=== PATIENT | male | born 1990 | race African-American/Black ===

== ENCOUNTER 2020-04-21 08:36 | Outpatient (CLI) | payer OTHER | END 2020-04-21 20:34 | disposition home or self-care (01) | LOC: CT 08:36 | DX: R10.9 Unspecified abdominal pain (principal); R31.9 Hematuria, unspecified ==

== ENCOUNTER 2020-04-24 15:07 | Outpatient (CLI) | payer OTHER ==
[2020-04-24 15:16] LABS: PLATELET COUNT 172 K/uL (142-355)
[2020-04-24 15:39] LABS: POTASSIUM 4.1 mmol/L (3.6-5.2)
== END 2020-04-24 23:07 | disposition home or self-care (01) ==
LOC: LAB 15:07
PROVIDERS: Nurse Practitioner Family
DX: Z13.220 Encounter for screening for lipoid disorders (principal); Z13.228 Encounter for screening for other metabolic disorders; Z13.0 Encounter for screening for diseases of the blood and blood-forming organs and certain disorders involving the immune mechanism; R53.83 Other fatigue
CPT/HCPCS: 80053; 80061; 84402; 84403; 84443; 85027

== ENCOUNTER 2020-09-14 17:51 | Outpatient (CLI) | payer OTHER ==
[2020-09-14 18:53] LABS: PLATELET COUNT 217 K/uL (142-355)
[2020-09-14 19:12] LABS: POTASSIUM 4.1 mmol/L (3.6-5.2)
== END 2020-09-14 20:51 | disposition home or self-care (01) ==
LOC: LAB 17:51
PROVIDERS: ATTEND Nurse Practitioner Family
DX: R42 Dizziness and giddiness (principal); R11.0 Nausea; Z13.29 Encounter for screening for other suspected endocrine disorder
CPT/HCPCS: 80053; 83036; 84443; 85027

== ENCOUNTER 2020-09-19 16:53 | Outpatient (CLI) | payer OTHER | END 2020-09-19 21:39 | disposition home or self-care (01) | LOC: LAB 16:53 | PROVIDERS: ATTEND Nurse Practitioner Family | DX: N28.9 Disorder of kidney and ureter, unspecified (principal); R74.8 Abnormal levels of other serum enzymes; Z13.220 Encounter for screening for lipoid disorders | CPT/HCPCS: 80061; 80074; 81000; 82043 ==

== ENCOUNTER 2020-09-25 10:51 | Outpatient (CLI) | payer OTHER | END 2020-09-25 19:18 | disposition home or self-care (01) | LOC: US 10:51 | PROVIDERS: ATTEND Nurse Practitioner Family | DX: N28.9 Disorder of kidney and ureter, unspecified (principal); Z87.442 Personal history of urinary calculi; R74.8 Abnormal levels of other serum enzymes ==

== ENCOUNTER 2020-09-27 09:16 | Outpatient (CLI) | payer OTHER | END 2020-09-27 21:39 | disposition home or self-care (01) | LOC: MRI 09:16 | PROVIDERS: ATTEND Nurse Practitioner Family | DX: R42 Dizziness and giddiness (principal); R51.9 Headache, unspecified; H53.9 Unspecified visual disturbance; Z87.820 Personal history of traumatic brain injury | CPT/HCPCS: 36415; 82565; 84520; A9576 ==